=== PATIENT | male | born 1955 | race Caucasian/White ===

== ENCOUNTER → 2016-04-08 | Outpatient (CLI) | payer OTHER ==
[2016-04-08 08:42] LABS: ANION GAP 11 (5-19); BLOOD UREA NITROGEN 12 mg/dL (7-20); CALCIUM 9.5 mg/dL (8.4-10.2); CARBON DIOXIDE 29 mmol/L (22-30); CHLORIDE 104 mmol/L (98-107); CREATININE RESULT 0.99 mg/dL (0.52-1.25); GLUCOSE 82 mg/dL (75-110); POTASSIUM 5.3 mmol/L (3.6-5.0); SODIUM 143.5 mmol/L (137-145)
== END ==
LOC: OD 07:08
PROVIDERS: ATTEND Internal Medicine Nephrology
DX: E87.5 Hyperkalemia (principal)
CPT/HCPCS: 36415; 80048

== ENCOUNTER → 2016-05-06 | Outpatient (CLI) | payer OTHER | LOC: OD 07:22 | PROVIDERS: ATTEND Internal Medicine Nephrology | DX: E87.5 Hyperkalemia (principal) | CPT/HCPCS: 36415; 84132 ==

== ENCOUNTER → 2017-03-20 | Outpatient (CLI) | payer BC ==
[2017-03-20 09:10] LABS: ABSOLUTE EOSINOPHILS # (AUTO) 0.3 10^3/uL (0.0-0.6); ABSOLUTE LYMPHOCYTES (AUTO) 1.6 10^3/uL (0.5-4.7); ABSOLUTE MONOCYTES (AUTO) 0.7 10^3/uL (0.1-1.4); ABSOLUTE NEUT (AUTO) 4.6 10^3/uL (1.7-8.2); BASOPHILS % (AUTO) 0.6 % (0-2); EOSINOPHILS % (AUTO) 3.6 % (0-6); HEMATOCRIT 46.3 % (37.9-51.0); HEMOGLOBIN 16.1 g/dL (13.5-17.0); LYMPHOCYTES % (AUTO) 22.7 % (13-45); MEAN CORPUSCULAR HEMOGLOBIN 31.5 pg (27.0-33.4); MEAN CORPUSCULAR HGB CONC 34.7 g/dL (32.0-36.0); MEAN CORPUSCULAR VOLUME 91 fl (80-97); RED CELL DISTRIBUTION WIDTH 13.7 % (11.5-14.0); SEGMENTED NEUTROPHILS % (AUTO) 64.1 % (42-78); WHITE BLOOD COUNT 7.2 10^3/uL (4.0-10.5)
[2017-03-20 09:46] LABS: ALANINE AMINOTRANSFERASE 44 U/L (21-72); ALBUMIN 4.3 g/dL (3.5-5.0); ALKALINE PHOSPHATASE 69 U/L (38-126); ANION GAP 11 (5-19); ASPARTATE AMINO TRANSFERASE 35 U/L (17-59); BILIRUBIN,DIRECT 0.3 mg/dL (0.0-0.4); BILIRUBIN,TOTAL 0.9 mg/dL (0.2-1.3); BLOOD UREA NITROGEN 10 mg/dL (7-20); CALCIUM 9.6 mg/dL (8.4-10.2); CARBON DIOXIDE 27 mmol/L (22-30); CHLORIDE 106 mmol/L (98-107); CHOLESTEROL 120.39 mg/dL (0-200); CREATININE RESULT 0.88 mg/dL (0.52-1.25); Direct HDL 43 mg/dL (>40); GLUCOSE 90 mg/dL (75-110); MAGNESIUM 2.1 mg/dL (1.6-2.3); POTASSIUM 5.1 mmol/L (3.6-5.0); SODIUM 144.3 mmol/L (137-145); TOTAL PROTEIN 6.9 g/dL (6.3-8.2); TRIGLYCERIDES 81 mg/dL (<150)
[2017-03-20 09:58] LABS: DIRECT LDL 70 mg/dL (<100)
== END ==
LOC: OD 07:14
PROVIDERS: ATTEND Internal Medicine
DX: E78.5 Hyperlipidemia, unspecified (principal); E87.5 Hyperkalemia; R53.82 Chronic fatigue, unspecified; K21.9 Gastro-esophageal reflux disease without esophagitis; R35.1 Nocturia
CPT/HCPCS: 36415; 80053; 80061; 83735; 84153; 84443; 85025

== ENCOUNTER 2018-05-22 06:59 | Day surgery (SDC) | payer BC, OTHER ==
[2018-05-22] MEDS ORDERED: PROPOFOL INJ 200 MG/20 ML VIAL IV ONE (07:23)
[2018-05-22 10:12] VITALS: BP 150/68
--- NOTE | 2018-05-22 11:37 | Operative Report ---
Operative Report DATE OF SURGERY: 05/22/18 Operative Report: The risks benefits and alternatives of the procedure explained to the patient in detail and informed consent is obtained.A GIF Olympus video scope was inserted into the patient's mouth and hypopharynx, the esophagus is identified intubated and insufflated, the scope was then advanced through the esophagus stomach and duodenum, retroflexion maneuver is done, the esophagus stomach and first and second portions of the duodenum examined. PREOPERATIVE DIAGNOSIS: Ramey's esophagus POSTOPERATIVE DIAGNOSIS: Ramey's esophagus status post radiofrequency ablation. Gastritis status post biopsy rule out Helicobacter pylori OPERATION: EGD with radiofrequency ablation. EGD followed by biopsy SURGEON: SHAE BOND ANESTHESIA: LMAC TISSUE REMOVED OR ALTERED: As noted above. COMPLICATIONS: None. ESTIMATED BLOOD LOSS: None. INTRAOPERATIVE FINDINGS: As noted above. PROCEDURE: Patient tolerated the procedure well. No immediate postprocedure complications are noted. Patient discharged in good condition. Discharge date 05/22/2018. Discharge diet: Regular. Discharge activity: Regular. 2-3-week follow-up to discuss findings. Patient is instructed to call the office or proceed to the emergency room should there be any further proximal questions. Wait on the pathology.
--- NOTE | 2018-05-22 13:25 | EKG REPORT ---
SEVERITY:- ABNORMAL ECG - SINUS RHYTHM MULTIPLE ATRIAL PREMATURE COMPLEXES LEFT BUNDLE BRANCH BLOCK : Confirmed by: Cole Chang MD 22-May-2018 13:24:43
== END 2018-05-22 09:44 | disposition home or self-care (01) ==
LOC: END 06:59
PROVIDERS: ATTEND Internal Medicine Gastroenterology
DX: K29.50 Unspecified chronic gastritis without bleeding (principal); K31.7 Polyp of stomach and duodenum; K22.719 Barrett's esophagus with dysplasia, unspecified; I10 Essential (primary) hypertension; K21.9 Gastro-esophageal reflux disease without esophagitis; Z79.899 Other long term (current) drug therapy
CPT/HCPCS: 43270; 43239; 88305 ×2; 93005; 93010; J2704; 731